=== PATIENT | male | born 1980 | race American Indian/Alaskan Native ===

== ENCOUNTER 2019-08-25 17:10 | Emergency (ER) | payer MEDICAID ==
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
[2019-08-25 22:50] VITALS: BP 109/78
== END 2019-08-25 21:55 | disposition home or self-care (01) ==
LOC: ED 17:10
DX: M79.602 Pain in left arm (principal); M54.89 Other dorsalgia; F17.200 Nicotine dependence, unspecified, uncomplicated; F12.10 Cannabis abuse, uncomplicated; Y04.2XXA Assault by strike against or bumped into by another person, initial encounter; Y93.89 Activity, other specified; Y92.89 Other specified places as the place of occurrence of the external cause; Y99.8 Other external cause status
CPT/HCPCS: 70450

== ENCOUNTER 2019-08-25 22:27 | Emergency (ER) | payer MEDICAID ==
[2019-08-26 00:52] LABS: Basophils # (Auto) 0.1 K/mm3 (0.0-0.1); Basophils % (Auto) 1.2 % (0.0-1.8); Eosinophils # (Auto) 0.1 K/mm3 (0.0-0.4); Eosinophils % (Auto) 1.6 % (0.0-4.3); Hematocrit 42.5 % (35.5-45.6); Hemoglobin 14.5 gm/dl (11.8-15.2); Lymphocytes # (Auto) 1.8 K/mm3 (1.2-5.4); Lymphocytes % (Auto) 36.6 % (13.4-35.0); Mean Corpuscular HGB Conc 34 % (32-34); Mean Corpuscular Volume 86 fl (84-94); Monocytes # (Auto) 0.5 K/mm3 (0.0-0.8); Platelet Count 174 K/mm3 (140-440); Red Blood Count 4.97 M/mm3 (3.65-5.03); Red Cell Distribution Width 13.7 % (13.2-15.2)
[2019-08-26 01:09] LABS: BUN/Creatinine Ratio 9; Blood Urea Nitrogen 10 mg/dL (9-20); Calcium 8.8 mg/dL (8.4-10.2); Hemolysis Index 8
[2019-08-26 01:53] LABS: Bilirubin,Urine NEG (Negative); Blood,Urine NEG (Negative); Color,Urine Yellow (Yellow); Protein,Urine <15 mg/dL mg/dL (Negative); Urobilinogen,Urine < 2.0 mg/dL (<2.0)
[2019-08-26 02:10] LABS: Amphetamine Screen,Urine Negative; Benzodiazepines Screen,Urine Negative; Cocaine Screen,Urine Negative; Methadone Screen,Urine Negative; Opiate Screen,Urine Negative
[2019-08-26 03:36] LABS: Cannabinoid Screen,Urine Positive
--- NOTE | 2019-08-26 06:52 | Emergency Department Report ---
ED Psych HPI - General Chief Complaint: Psych Stated Complaint: MH Time Seen by Provider: 08/26/19 06:08 Source: patient Mode of arrival: Ambulatory - History of Present Illness Initial Comments: 39-year-old male presented to triage requesting mental health evaluation. When I went to speak to the patient, patient refuses to get out of bed and speak with me. When I asked him why he is here in the ER, patient states "I forgot," and pulls the sheets back over his head. Nurse states patient reported auditory hallucinations and that he has been out of his psych meds x2 weeks. It is unclear where his psychiatric diagnosis is or what medications he takes. Complaint: other -: week(s) (2) Associated Psychiatric Symptoms: auditory hallucinations Associated Symptoms: denies other symptoms Treatments Prior to Arrival: none - Related Data Allergies Allergy/AdvReac Type Severity Reaction Status Date / Time No Known Allergies Allergy Unverified 08/25/19 17:13 ED Review of Systems ROS: Stated complaint: MH Other details as noted in HPI Comment: All other systems reviewed and negative Psychiatric: auditory hallucinations ED Past Medical Hx - Past Medical History Previous Medical History?: Yes Hx Psychiatric Treatment: Yes (Schizophrenia) - Social History Smoking Status: Current Every Day Smoker Substance Use Type: None ED Physical Exam - General Limitations: No Limitations General appearance: alert, in no apparent distress - Head Head exam: Present: atraumatic, normocephalic - Eye Eye exam: Present: normal appearance - ENT ENT exam: Present: mucous membranes moist - Neck Neck exam: Present: normal inspection - Respiratory Respiratory exam: Present: normal lung sounds bilaterally. Absent: respiratory distress - Cardiovascular Cardiovascular Exam: Present: regular rate, normal rhythm - GI/Abdominal GI/Abdominal exam: Absent: distended - Extremities Exam Extremities exam: Present: normal inspection - Psychiatric Psychiatric exam: Present: normal affect, normal mood ED Course Vital Signs 08/26/19 08/26/19 08/26/19 00:05 05:57 07:56 Temperature 98.5 F 97.5 F L Pulse Rate 67 70 Respiratory 18 18 18 Rate Blood Pressure 104/71 Blood Pressure 108/69 [Left] O2 Sat by Pulse 98 99 Oximetry ED Medical Decision Making - Lab Data Result diagrams: 08/26/19 00:25 08/26/19 00:25 - Medical Decision Making Pt seen and evaluated by mental health doctor of podiatry. He denies SI/HI. Pt does not meet inpatient criteria. Will d/c with resources. Critical care attestation.: If time is entered above; I have spent that time in minutes in the direct care of this critically ill patient, excluding procedure time. ED Disposition Clinical Impression: Schizophrenia, Auditory hallucinations, Homelessness Disposition: DC-01 TO HOME OR SELFCARE Is pt being admited?: No Condition: Stable Instructions: Schizophrenia (ED) Referrals: PRIMARY CARE, [Primary Care Provider] - 3-5 Days [facility] [Outside] - 3-5 Days Time of Disposition: 12:21
[2019-08-26 09:41] VITALS: BP 108/69
== END 2019-08-26 12:44 | disposition home or self-care (01) ==
LOC: ED 22:27
DX: F20.89 Other schizophrenia (principal); F17.200 Nicotine dependence, unspecified, uncomplicated; Z59.0 Homelessness
CPT/HCPCS: 36415; 80048; 80307; 80320; 81001; 85025; G0480

== ENCOUNTER 2019-08-26 13:54 | Emergency (ER) | payer MEDICAID | END 2019-08-26 13:59 | disposition left against medical advice (07) | LOC: ED 13:54 | DX: R41.82 Altered mental status, unspecified (principal); Z53.21 Procedure and treatment not carried out due to patient leaving prior to being seen by health care provider ==